=== PATIENT | male | born 1965 | race Caucasian/White ===

== ENCOUNTER 2019-03-09 00:19 | Emergency (ER) | payer MEDICARE ==
[~2019-03-09] VITALS: Ht 162.6 cm; Wt 65.9 kg
[2019-03-09 00:31] VITALS: Ht 162.6 cm; Wt 65.9 kg
[2019-03-09] MEDS ORDERED: LISINOPRIL2.5 MG PO (00:32)
[2019-03-09] MEDS ORDERED: DEPRESSION MEDS (00:33)
[2019-03-09] MEDS ORDERED: SLEEPING PILL (00:33)
[2019-03-09] MEDS ORDERED: GLUCOTROL 5 MG T5 MG PO (00:33)
[2019-03-09] MEDS ORDERED: GLUCOPHAGE500 MG PO (00:33)
[2019-03-09] MEDS ORDERED: HYDROCODON-ACE1 EAC7 PO (02:34)
[2019-03-09 03:25] VITALS: BP 137/72
== END 2019-03-09 03:20 | disposition home or self-care (01) ==
LOC: D.ER 00:19
DX: M54.5 Low back pain (principal); M25.561 Pain in right knee; M25.521 Pain in right elbow; W10.9XXA Fall (on) (from) unspecified stairs and steps, initial encounter; Y93.89 Activity, other specified; Y92.89 Other specified places as the place of occurrence of the external cause

== ENCOUNTER → 2019-04-15 10:39 | Outpatient (CLI) | payer MEDICARE ==
[2019-03-09 00:31] VITALS: BMI 24.9
[~2019-04-15 10:39] MED LIST: DEPRESSION MEDS; GLUCOPHAGE500 MG PO; GLUCOTROL 5 MG T5 MG PO; HYDROCODON-ACE1 EAC7 PO; LISINOPRIL2.5 MG PO; SLEEPING PILL
== END | disposition home or self-care (01) ==
LOC: D.US 10:30
PROVIDERS: ATTEND Emergency Medicine
DX: R94.5 Abnormal results of liver function studies (principal)